=== PATIENT | male | born 1940 | race Caucasian/White ===

== ENCOUNTER → 2019-11-05 | Outpatient (CLI) | payer MEDICARE ==
[2019-11-08 15:09] LABS: T-TRANSGLUTAMINASE (TTG) IGA <2 U/mL (0-3); T-TRANSGLUTAMINASE (TTG) IGG 3 U/mL (0-5)
== END ==
LOC: LB.CLINIC 10:38
PROVIDERS: ATTEND Family Medicine
DX: R19.7 Diarrhea, unspecified (principal)
CPT/HCPCS: 36415; 83516; 83516-59; 87177; 87209; 87493

== ENCOUNTER 2020-04-03 13:41 | Emergency (ER) | payer MEDICARE ==
[2020-04-03 14:35] VITALS: BP 171/75; PULSE 52
--- NOTE | 2020-04-03 18:51 | EDM.PDOC ---
ED HPI GENERAL MEDICAL PROBLEM - General Chief Complaint: General Stated Complaint: HEART RATE Time Seen by Provider: 04/03/20 14:33 Source of Information: Reports: Patient History Limitations: Reports: No Limitations - History of Present Illness INITIAL COMMENTS - FREE TEXT/NARRATIVE: Patient is an 80 year old with history of atrial fibrillation who presents complaining of decreased heart rate with decreased exercise tolerance than he noted this am . Patient takes Diltiazem 240 mg po daily to control rate and takes Eliquis for an anticoagulant. NO chest pain or SOB 1 month ago started on Clonicien 1 mg bid the patient decreased to .5 mg po bid due to feeling too fatigued from 1 mg bid. Called [facility]iller runner office and they recommended he come to ED for evaluation. Onset: Today, Gradual Duration: Constant - Related Data Allergies Allergy/AdvReac Type Severity Reaction Status Date / Time Penicillins Allergy Rash Verified 11/17/15 13:44 sucralfate [From Carafate] Allergy Cannot Verified 11/17/15 13:44 Remember Sulfa (Sulfonamide Allergy Rash Verified 11/17/15 13:44 Antibiotics) venom-honey bee Allergy Cannot Verified 11/17/15 13:44 [bee venom (honey bee)] Remember Home Meds: Home Meds Aspirin [Children's Aspirin] 81 mg PO DAILY 03/06/15 [History] Hydrochlorothiazide 25 mg PO DAILY 03/06/15 [History] Losartan Potassium 100 mg PO DAILY 03/06/15 [History] dilTIAZem HCL [Cardizem Cd] 240 mg PO DAILY 03/06/15 [History] Apixaban [Eliquis] 5 mg PO BID 04/03/20 [History] cloNIDine [Catapres] 0.1 mg PO DAILY 04/03/20 [History] Past Medical History Cardiovascular History: Reports: Heart Murmur, Hypertension Genitourinary History: Reports: BPH - Past Surgical History Head Surgeries/Procedures: Reports: None HEENT Surgical History: Reports: None Respiratory Surgical History: Reports: None GI Surgical History: Reports: Appendectomy, Cholecystectomy, Hernia Repair/Other Male Surgical History: Reports: None, Circumcision Endocrine Surgical History: Reports: None Neurological Surgical History: Reports: None Musculoskeletal Surgical History: Reports: None Oncologic Surgical History: Reports: None Dermatological Surgical History: Reports: None Social & Family History - Family History Family Medical History: Noncontributory ED ROS GENERAL - Review of Systems Review Of Systems: See Below Constitutional: Reports: Fatigue. Denies: Fever, Chills, Malaise HEENT: Reports: No Symptoms Respiratory: Reports: No Symptoms Cardiovascular: Denies: Chest Pain, Dyspnea on Exertion, Orthopnea Endocrine: Reports: Fatigue GI/Abdominal: Denies: Abdominal Pain, Bloody Stool, Diarrhea, Nausea, Vomiting : Reports: No Symptoms Musculoskeletal: Reports: No Symptoms Skin: Reports: No Symptoms Neurological: Reports: No Symptoms Psychiatric: Reports: No Symptoms Hematologic/Lymphatic: Reports: No Symptoms ED EXAM, GENERAL - Physical Exam Exam: See Below EKG INTERPRETATION EKG Date: 04/03/20 Time: 13:15 Rhythm: A-Fib Rate (Beats/Min): 47 P-Wave: Absent QRS: Other (usual narrow but occassional widened QRS) EKG Interpretation Comments: Atrial fib with slow ventricular response with PVC's vs aberrrantly conducted complexes Course - Vital Signs Text/Narrative:: Patient observed in ED and and advised that dose of Diltiazem appears to be too high at this time\ Case discussed with Dr. Joshi who recommends decreasing dose to 120 mg po daily from 240 mg daily Patient to follow up with Dr. Joshi next week. Will continue current meds for BP including clonidine, HCTZ and Losartan at current doses Last Recorded V/S: Last Vital Signs Temp 97.9 F 04/03/20 14:10 Pulse 52 L 04/03/20 14:10 Resp 18 04/03/20 14:10 BP 171/75 H 04/03/20 14:10 Pulse Ox 98 04/03/20 14:10 - Orders/Labs/Meds Labs: Laboratory Tests 04/03/20 Range/Units 14:38 Sodium 140 (136-145) mmol/L Potassium 4.3 (3.5-5.1) mmol/L Chloride 103 (98-107) mmol/L Carbon Dioxide 29.4 (21.0-32.0) mmol/L Anion Gap 11.9 (5.0-15.0) mmol/L BUN 31 H (8-26) mg/dL Creatinine 1.52 H (0.70-1.30) mg/dL Est Cr Clr Drug Dosing 36.25 mL/min Estimated GFR (MDRD) 44 L (>60) MLS/MIN BUN/Creatinine Ratio 20.4 (6-25) Glucose 115 H (74-100) mg/dL Calcium 9.2 (8.5-10.1) mg/dL Troponin I 0.024 (0.000-0.060) ng/mL Departure - Departure Time of Disposition: 16:00 Disposition: Home, Self-Care 01 Condition: Good Clinical Impression: Adverse effect of calcium-channel blockers, initial encounter, Atrial fibrillation with slow ventricular response - Discharge Information *PRESCRIPTION DRUG MONITORING PROGRAM REVIEWED*: Not Applicable *COPY OF PRESCRIPTION DRUG MONITORING REPORT IN PATIENT BIRGIT: Not Applicable Referrals: PCP,None [Primary Care Provider] - Forms: ED Department Discharge Additional Instructions: Discharge home. Follow up with your quiller runner next week. Diltiazem 120mg by mouth daily. Call or return to the ER if you have any issues or concerns. Sepsis Event Note - Evaluation Sepsis Screening Result: No Definite Risk - Focused Exam Date Exam was Performed: 04/06/20 Time Exam was Performed: 08:29
--- NOTE | 2020-04-05 11:17 | CR ---
DATE OF SERVICE: 04/03/20 CLINICAL DATA: slow heart rate PA AND LATERAL CHEST: No priors. The heart is mildly enlarged. The aorta is calcified and ectatic. There is eventration of the right hemidiaphragm. The lungs are clear. No pneumothorax. No pleural effusions. No other significant findings. IMPRESSION: No evidence of acute intrathoracic disease. [id number] [facility]
== END 2020-04-03 16:00 | disposition home or self-care (01) ==
LOC: LB.ED 13:41
DX: I48.91 Unspecified atrial fibrillation (principal); T46.1X5A Adverse effect of calcium-channel blockers, initial encounter; I10 Essential (primary) hypertension; Z79.82 Long term (current) use of aspirin; Z79.01 Long term (current) use of anticoagulants; Z79.899 Other long term (current) drug therapy; Z88.0 Allergy status to penicillin; Z88.2 Allergy status to sulfonamides; Z91.030 Bee allergy status
CPT/HCPCS: 36415; 71046; 80048; 84484; 93005; 99284-25

== ENCOUNTER 2020-05-07 07:12 | Emergency (ER) | payer MEDICARE ==
[2020-05-07] MEDS: hydrALAZINE 20 MG/ML SDV IVPUSH ONE (07:45)
--- NOTE | 2020-05-07 07:51 | EDM.PDOC ---
ED HPI GENERAL MEDICAL PROBLEM - General Chief Complaint: Cardiovascular Problem Stated Complaint: SOB Time Seen by Provider: 05/07/20 07:35 Source of Information: Reports: Patient History Limitations: Reports: No Limitations - History of Present Illness INITIAL COMMENTS - FREE TEXT/NARRATIVE: pt presents to ED with elevated blood pressure at home of about 220/110 with coinciding shortness of breath/difficultly with deep inspiration. pt states he was at his cardiology appointment yesterday and prescribed amlodipine 5mg which he has not taken yet. pt did take is prescribed clonidine this AM. pt denies chest pain, headache, dizziness, fever, chills, cough, weakness, visual changes. - Related Data Allergies Allergy/AdvReac Type Severity Reaction Status Date / Time Penicillins Allergy Rash Verified 11/17/15 13:44 sucralfate [From Carafate] Allergy Cannot Verified 11/17/15 13:44 Remember Sulfa (Sulfonamide Allergy Rash Verified 11/17/15 13:44 Antibiotics) venom-honey bee Allergy Cannot Verified 11/17/15 13:44 [bee venom (honey bee)] Remember Home Meds: Home Meds Aspirin [Children's Aspirin] 81 mg PO DAILY 03/06/15 [History] Hydrochlorothiazide 25 mg PO DAILY 03/06/15 [History] Losartan Potassium 100 mg PO DAILY 03/06/15 [History] dilTIAZem HCL [Cardizem Cd] 240 mg PO DAILY 03/06/15 [History] Apixaban [Eliquis] 5 mg PO BID 04/03/20 [History] cloNIDine [Catapres] 0.1 mg PO DAILY 04/03/20 [History] Past Medical History Cardiovascular History: Reports: Heart Murmur, Hypertension Genitourinary History: Reports: BPH - Past Surgical History Head Surgeries/Procedures: Reports: None HEENT Surgical History: Reports: None Respiratory Surgical History: Reports: None GI Surgical History: Reports: Appendectomy, Cholecystectomy, Hernia Repair/Other Male Surgical History: Reports: None, Circumcision Endocrine Surgical History: Reports: None Neurological Surgical History: Reports: None Musculoskeletal Surgical History: Reports: None Oncologic Surgical History: Reports: None Dermatological Surgical History: Reports: None Social & Family History - Family History Family Medical History: Noncontributory ED ROS GENERAL - Review of Systems Review Of Systems: Comprehensive ROS is negative, except as noted in HPI. ED EXAM, GENERAL - Physical Exam Exam: See Below Exam Limited By: No Limitations General Appearance: Alert Eye Exam: Bilateral Eye: EOMI, PERRL Nose: Normal Inspection Throat/Mouth: Normal Inspection, Normal Teeth, Normal Voice, No Airway Compromise Respiratory/Chest: No Respiratory Distress, Lungs Clear, Normal Breath Sounds, No Accessory Muscle Use Cardiovascular: Normal Peripheral Pulses, No Edema, No Gallop, Systolic Murmur (4/6), Irregularly Irregular Peripheral Pulses: 2+: Radial (L), Radial (R), Dorsalis Pedis (L), Dorsalis Pedis (R) Neurological: Alert, Oriented, CN II-XII Intact, Normal Cognition, No Motor/Sensory Deficits Psychiatric: Normal Affect, Normal Mood Skin Exam: Warm, Dry, Intact EKG INTERPRETATION EKG Date: 05/07/20 Time: 07:28 Rhythm: A-Fib [place]: Normal P-Wave: Absent QRS: Normal ST-T: Normal QT: Normal Comparison: No Change Course - Vital Signs Last Recorded V/S: Last Vital Signs Temp 98.4 F 05/07/20 07:19 Pulse 52 L 05/07/20 07:46 Resp 16 05/07/20 08:01 BP 174/64 H 05/07/20 08:01 Pulse Ox 16 L 05/07/20 08:01 - Orders/Labs/Meds Orders: Active Orders 24 hr Category Date Time Status EKG Documentation Completion [RC] ASDIRECTED Care 05/07/20 07:41 Active Labs: Laboratory Tests 05/07/20 05/07/20 Range/Units 07:51 07:51 WBC 6.0 (4.0-11.0) K/uL RBC 4.24 L (4.50-6.50) M/uL Hgb 13.1 (13.0-18.0) g/dL Hct 38.1 L (40.0-54.0) % MCV 90 (76-96) fL MCH 30.9 (27.0-32.0) pg MCHC 34.4 (31.0-35.0) g/dL RDW 14.0 (11.0-16.0) % Plt Count 216 (150-400) K/uL MPV 9.3 (6.0-10.0) fL Neut % (Auto) 73.6 H (45.0-70.0) % Lymph % (Auto) 14.0 L (20.0-40.0) % [place] % (Auto) 9.1 (3.0-10.0) % Eos % (Auto) 3.0 (1.0-5.0) % Baso % (Auto) 0.3 (0.0-0.5) % Neut # (Auto) 4.43 (2.00-7.50) K/uL Lymph # (Auto) 0.84 L (1.50-4.00) K/uL [place] # (Auto) 0.55 (0.20-0.80) K/uL Eos # (Auto) 0.18 (0.04-0.40) K/uL Baso # (Auto) 0.02 (0.02-0.10) K/uL Sodium 130 L (136-145) mmol/L Potassium 3.2 L D (3.5-5.1) mmol/L Chloride 97 L (98-107) mmol/L Carbon Dioxide 29.5 (21.0-32.0) mmol/L Anion Gap 6.7 (5.0-15.0) mmol/L BUN 22 D (8-26) mg/dL Creatinine 1.18 D (0.70-1.30) mg/dL Est Cr Clr Drug Dosing TNP Estimated GFR (MDRD) 59 L (>60) MLS/MIN BUN/Creatinine Ratio 18.6 (6-25) Glucose 126 H (74-100) mg/dL Calcium 9.4 (8.5-10.1) mg/dL Total Bilirubin 1.2 H D (0.0-1.0) mg/dL AST 22 (15-37) U/L ALT 28 (12-78) U/L Alkaline Phosphatase 145 H (46-116) U/L Troponin I 0.024 (0.000-0.060) ng/mL B-Natriuretic Peptide 5746 H (0-450) pg/mL Total Protein 7.7 (6.4-8.2) g/dL Albumin 3.5 (3.4-5.0) g/dL Globulin 4.2 (2.2-4.2) g/dL Albumin/Globulin Ratio 0.8 (0.8-2.0) Meds: Medications Discontinued Medications Generic Name Dose Route Start Last Admin Trade Name Prosper PRN Reason Stop Dose Admin Hydralazine HCl 10 mg 05/07/20 07:41 05/07/20 07:45 Apresoline IVPUSH 05/07/20 07:42 10 mg ONETIME ONE Administration Hydralazine HCl Confirm 05/07/20 08:05 Apresoline Administered 05/07/20 08:06 Dose 20 mg .ROUTE .STK-MED ONE Departure - Departure Time of Disposition: 09:30 Disposition: Home, Self-Care 01 Clinical Impression: Hypokalemia, Hyponatremia, Hypertensive urgency - Discharge Information *PRESCRIPTION DRUG MONITORING PROGRAM REVIEWED*: Not Applicable *COPY OF PRESCRIPTION DRUG MONITORING REPORT IN PATIENT BIRGIT: Not Applicable Instructions: Hypokalemia, Hypertension, Adult, [id number], Heart Failure, Diagnosis, [id number] Referrals: PCP,None [Primary Care Provider] - Forms: ED Department Discharge Additional Instructions: Prescription sent for Potasium Cl 10mEq BID [facility] Patient instructed to go get today and get new prescription from Dr. Joshi. Watch for signs of heart failure such as edema, shortness of breath. Sepsis Event Note (ED) - Focused Exam Vital Signs: Vital Signs Temp Pulse Resp BP Pulse Ox 05/07/20 08:01 16 174/64 H 16 L 05/07/20 07:46 52 L 16 177/65 H 94 L 05/07/20 07:36 53 L 16 197/71 H 95 05/07/20 07:19 98.4 F 58 L 18 184/63 H 96 - Problem List & Annotations (1) Hypertensive urgency SNOMED Code(s): 288165216 Code(s): I16.0 - HYPERTENSIVE URGENCY Status: Acute Current Visit: Yes (2) Hypokalemia SNOMED Code(s): 58731820 Code(s): E87.6 - HYPOKALEMIA Status: Acute Current Visit: Yes Annotation/Comment:: PO K+ prescription called into [facility] (3) Hyponatremia SNOMED Code(s): 91374444 Code(s): E87.1 - HYPO-OSMOLALITY AND HYPONATREMIA Status: Acute Current Visit: Yes Annotation/Comment:: ok'd pt to resume table salt, his renal function is well within normal limits and excretion is not an issue. - Problem List Review Problem List Initiated/Reviewed/Updated: Yes - My Orders Last 24 Hours: My Active Orders 05/07/20 07:41 EKG Documentation Completion [RC] ASDIRECTED - Assessment/Plan Last 24 Hours: My Active Orders 05/07/20 07:41 EKG Documentation Completion [RC] ASDIRECTED Assessment:: hypokalemia hypertensive urgency hyponatremia Plan: with pt's renal function intact, ok'd use of table salt to see if these levels maintain. currently 130 which is slightly low but i don't want to reduce his hctz dose right now as he does have history of CHF and any other diuretic, to the best of my knowledge, would either reduce other electrolytes more or continue effect of sodium excretion. will add PO kdur BID to increase his k+ for the next 30 days, pt then sees cardiology and at that time can have his levels checked again. hypertensive urgency, pt given 10mg hydralazine which reduced his bp to 160s/80s -170/80s with resolution of the slight shortness of breath he was having. pt will be starting amlodipine later today. he was encouraged to return if any symptoms returned including SOB, chest pain, headache, visual changes, weakness. pt agreeable to this and discharged home.
[2020-05-07] MEDS ORDERED: hydrALAZINE 20 MG/ML SDV ONE (08:05)
[2020-05-07 09:02] VITALS: PULSE 52
[2020-05-07 09:03] VITALS: BP 174/64
== END 2020-05-07 10:01 | disposition home or self-care (01) ==
LOC: LB.ED 07:12
DX: I16.0 Hypertensive urgency (principal); E87.6 Hypokalemia; E87.1 Hypo-osmolality and hyponatremia; I10 Essential (primary) hypertension; Z79.01 Long term (current) use of anticoagulants; Z88.0 Allergy status to penicillin; Z88.2 Allergy status to sulfonamides; Z91.030 Bee allergy status; Z79.82 Long term (current) use of aspirin; Z79.899 Other long term (current) drug therapy
CPT/HCPCS: 36415; 80053; 83880; 84484; 85025; 93005; 96374; 99284; 99284-25; J0360

== ENCOUNTER 2020-12-09 04:32 | Emergency (ER) | payer MEDICARE ==
--- NOTE | 2020-12-09 05:25 | EDM.PDOC ---
ED HPI GENERAL MEDICAL PROBLEM - General Chief Complaint: Back Pain or Injury Stated Complaint: back pain Time Seen by Provider: 12/09/20 05:10 Source of Information: Reports: Patient, Family, RN History Limitations: Reports: No Limitations - History of Present Illness Onset: Gradual Duration: Hour(s): Location: Reports: Back, Radiates to (both legss) Quality: Reports: Burning, Sharp Severity: Moderate Improves with: Reports: None - Related Data Allergies Allergy/AdvReac Type Severity Reaction Status Date / Time Penicillins Allergy Rash Verified 11/17/15 13:44 sucralfate [From Carafate] Allergy Cannot Verified 11/17/15 13:44 Remember Sulfa (Sulfonamide Allergy Rash Verified 11/17/15 13:44 Antibiotics) venom-honey bee Allergy Cannot Verified 11/17/15 13:44 [bee venom (honey bee)] Remember Home Meds: Home Meds Aspirin [Children's Aspirin] 81 mg PO DAILY 03/06/15 [History] Hydrochlorothiazide 25 mg PO DAILY 03/06/15 [History] Losartan Potassium 100 mg PO DAILY 03/06/15 [History] dilTIAZem HCL [Cardizem Cd] 240 mg PO DAILY 03/06/15 [History] Apixaban [Eliquis] 5 mg PO BID 04/03/20 [History] cloNIDine [Catapres] 0.1 mg PO DAILY 04/03/20 [History] Past Medical History HEENT History: Reports: Hard of Hearing, Impaired Vision Cardiovascular History: Reports: Heart Murmur, Hypertension, Pacemaker Genitourinary History: Reports: BPH - Past Surgical History Head Surgeries/Procedures: Reports: None HEENT Surgical History: Reports: None Respiratory Surgical History: Reports: None GI Surgical History: Reports: Appendectomy, Cholecystectomy, Hernia Repair/Other Male Surgical History: Reports: None, Circumcision Endocrine Surgical History: Reports: None Neurological Surgical History: Reports: None Musculoskeletal Surgical History: Reports: None Oncologic Surgical History: Reports: None Dermatological Surgical History: Reports: None Social & Family History - Family History Family Medical History: No Pertinent Family History - Tobacco Use Tobacco Use Status *Q: Former Tobacco User Tobacco Use Within Last Twelve Months: Pipe, Other (See Below) (45yrs ago) - Caffeine Use Caffeine Use: Reports: Coffee Other Caffeine Use: 2 cups ED ROS GENERAL - Review of Systems Review Of Systems: Comprehensive ROS is negative, except as noted in HPI. Musculoskeletal: Reports: Back Pain, Other (running down both legs) Skin: Reports: Other (Normal injection site on left) ED EXAM,LOWER BACK PAIN/INJURY - Physical Exam Exam: See Below Exam Limited By: No Limitations General Appearance: Moderate Distress Eye Exam: Bilateral Eye: PERRL Ears: Normal External Exam, Normal Canal Nose: Normal Inspection, Normal Mucosa, No Blood Throat/Mouth: Normal Inspection, Normal Lips, Normal Teeth, Normal Oropharynx Head: Atraumatic, Normocephalic Neck: Normal Inspection, Supple, Non-Tender Respiratory/Chest: No Respiratory Distress, Lungs Clear, Normal Breath Sounds Cardiovascular: Normal Peripheral Pulses, Regular Rate, Rhythm, No Edema GI/Abdominal: Normal Bowel Sounds, Soft, Non-Tender (Male) Exam: Deferred Rectal (Males) Exam: Deferred Back Exam: Other (tender over SI joint ) Extremities: Normal Inspection Neurological: Alert, Normal Mood/Affect, Normal Dorsiflexion, CN II-XII Intact, Normal Plantar Flexion Psychiatric: Normal Affect, Normal Mood Skin Exam: Warm, Dry, Intact, Normal Color, Other (injection site normal no sign of infection) Lymphatic: No Adenopathy Course - Vital Signs Last Recorded V/S: Last Vital Signs Temp Pulse 93 12/09/20 05:35 Resp 16 12/09/20 05:35 BP 154/74 H 12/09/20 05:35 Pulse Ox 100 12/09/20 05:35 - Orders/Labs/Meds Orders: Active Orders 24 hr Category Date Time Status Chest Abdomen Pelvis w Cont [CT] Stat Exams 12/09/20 05:00 Ordered Labs: Laboratory Tests 12/09/20 12/09/20 12/09/20 Range/Units 05:18 05:25 05:25 WBC 13.4 H D (4.0-11.0) K/uL RBC 4.43 L (4.50-6.50) M/uL Hgb 14.1 (13.0-18.0) g/dL Hct 41.5 (40.0-54.0) % MCV 94 (76-96) fL MCH 31.8 (27.0-32.0) pg MCHC 34.0 (31.0-35.0) g/dL RDW 12.5 (11.0-16.0) % Plt Count 223 (150-400) K/uL MPV 9.3 (6.0-10.0) fL Neut % (Auto) 90.5 H (45.0-70.0) % Lymph % (Auto) 5.4 L (20.0-40.0) % [place] % (Auto) 4.0 (3.0-10.0) % Eos % (Auto) 0.0 L (1.0-5.0) % Baso % (Auto) 0.1 (0.0-0.5) % Neut # (Auto) 12.13 H (2.00-7.50) K/uL Lymph # (Auto) 0.73 L (1.50-4.00) K/uL [place] # (Auto) 0.54 (0.20-0.80) K/uL Eos # (Auto) 0.00 L (0.04-0.40) K/uL Baso # (Auto) 0.01 L (0.02-0.10) K/uL PT 10.9 (9.0-11.5) sec INR 1.1 (1.0-3.5) Sodium 137 (136-145) mmol/L Potassium 4.9 (3.5-5.1) mmol/L Chloride 102 (98-107) mmol/L Carbon Dioxide 29.3 (21.0-32.0) mmol/L Anion Gap 10.6 (5.0-15.0) mmol/L BUN 24 (8-26) mg/dL Creatinine 1.27 (0.70-1.30) mg/dL Est Cr Clr Drug Dosing TNP Estimated GFR (MDRD) 54 L (>60) MLS/MIN BUN/Creatinine Ratio 18.9 (6-25) Glucose 169 H (74-100) mg/dL Calcium 9.2 (8.5-10.1) mg/dL Total Bilirubin 0.6 D (0.0-1.0) mg/dL AST 26 (15-37) U/L ALT 27 (12-78) U/L Alkaline Phosphatase 104 (46-116) U/L Total Protein 7.4 (6.4-8.2) g/dL Albumin 3.2 L (3.4-5.0) g/dL Globulin 4.2 (2.2-4.2) g/dL Albumin/Globulin Ratio 0.8 (0.8-2.0) Urine Color Urine Appearance (CLEAR) Urine pH (5.0-8.0) Ur Specific [place] (1.003-1.030) Urine Protein (NEGATIVE) mg/dL Urine Glucose (UA) (NEGATIVE) mg/dL Urine Ketones (NEGATIVE) mg/dL Urine Occult Blood (NEGATIVE) Urine Nitrite (NEGATIVE) Urine Bilirubin (NEGATIVE) Urine Urobilinogen (0.2-1.0) E.U./dL Ur Leukocyte Esterase (NEGATIVE) U Hyaline Cast (Auto) /HPF Urine RBC Urine WBC Urine Bacteria /HPF 12/09/20 Range/Units 06:00 WBC (4.0-11.0) K/uL RBC (4.50-6.50) M/uL Hgb (13.0-18.0) g/dL Hct (40.0-54.0) % MCV (76-96) fL MCH (27.0-32.0) pg MCHC (31.0-35.0) g/dL RDW (11.0-16.0) % Plt Count (150-400) K/uL MPV (6.0-10.0) fL Neut % (Auto) (45.0-70.0) % Lymph % (Auto) (20.0-40.0) % [place] % (Auto) (3.0-10.0) % Eos % (Auto) (1.0-5.0) % Baso % (Auto) (0.0-0.5) % Neut # (Auto) (2.00-7.50) K/uL Lymph # (Auto) (1.50-4.00) K/uL [place] # (Auto) (0.20-0.80) K/uL Eos # (Auto) (0.04-0.40) K/uL Baso # (Auto) (0.02-0.10) K/uL PT (9.0-11.5) sec INR (1.0-3.5) Sodium (136-145) mmol/L Potassium (3.5-5.1) mmol/L Chloride (98-107) mmol/L Carbon Dioxide (21.0-32.0) mmol/L Anion Gap (5.0-15.0) mmol/L BUN (8-26) mg/dL Creatinine (0.70-1.30) mg/dL Est Cr Clr Drug Dosing Estimated GFR (MDRD) (>60) MLS/MIN BUN/Creatinine Ratio (6-25) Glucose (74-100) mg/dL Calcium (8.5-10.1) mg/dL Total Bilirubin (0.0-1.0) mg/dL AST (15-37) U/L ALT (12-78) U/L Alkaline Phosphatase (46-116) U/L Total Protein (6.4-8.2) g/dL Albumin (3.4-5.0) g/dL Globulin (2.2-4.2) g/dL Albumin/Globulin Ratio (0.8-2.0) Urine Color Yellow Urine Appearance Clear (CLEAR) Urine pH 5.5 (5.0-8.0) Ur Specific [place] 1.025 (1.003-1.030) Urine Protein Trace H (NEGATIVE) mg/dL Urine Glucose (UA) Negative (NEGATIVE) mg/dL Urine Ketones Negative (NEGATIVE) mg/dL Urine Occult Blood Negative (NEGATIVE) Urine Nitrite Negative (NEGATIVE) Urine Bilirubin Negative (NEGATIVE) Urine Urobilinogen 0.2 (0.2-1.0) E.U./dL Ur Leukocyte Esterase Negative (NEGATIVE) U Hyaline Cast (Auto) Rare /HPF Urine RBC Not Reportable Urine WBC Not Reportable Urine Bacteria Few /HPF Meds: Medications Discontinued Medications Generic Name Dose Route Start Last Admin Trade Name Freq PRN Reason Stop Dose Admin Orphenadrine Citrate 60 mg 12/09/20 05:52 12/09/20 06:08 Norflex IM 12/09/20 05:53 60 mg ONETIME ONE Administration Tramadol HCl 100 mg 12/09/20 05:28 12/09/20 05:32 Ultram PO 12/09/20 05:29 100 mg ONETIME ONE Administration Tramadol HCl Confirm 12/09/20 05:40 12/09/20 05:44 Ultram Administered 12/09/20 05:41 Not Given Dose 100 mg .ROUTE .STK-MED ONE Departure - Departure Time of Disposition: 06:50 Disposition: Home, Self-Care 01 Condition: Good Clinical Impression: Radiculopathy due to lumbar intervertebral disc disorder, Muscle spasm of back - Discharge Information *PRESCRIPTION DRUG MONITORING PROGRAM REVIEWED*: Not Applicable *COPY OF PRESCRIPTION DRUG MONITORING REPORT IN PATIENT BIRGIT: Not Applicable Instructions: Herniated Disk, [id number], Chronic Back Pain, [id number], Pain Medicine Instructions, [id number], Muscle Cramps and Spasms, [id number], Radicular Pain Referrals: PCP,None [Primary Care Provider] - Forms: ED Department Discharge Additional Instructions: Take all medications as prescribed. RT to ED of FU with PCP for new or worsening symptoms. Watch for signs of infection, fever, shortness of breath, sweating, cough or congestion. keep injection site clean, watch for redness or drainage. Sepsis Event Note (ED) - Focused Exam Vital Signs: Vital Signs Pulse Resp BP Pulse Ox 12/09/20 05:35 93 16 154/74 H 100 - Problem List & Annotations (1) Radiculopathy due to lumbar intervertebral disc disorder SNOMED Code(s): 213755177163704 Code(s): M51.16 - INTERVERTEBRAL DISC DISORDERS W RADICULOPATHY, LUMBAR REGION Status: Acute Current Visit: Yes - My Orders Last 24 Hours: My Active Orders 12/09/20 05:00 Chest Abdomen Pelvis w Cont [CT] Stat - Assessment/Plan Last 24 Hours: My Active Orders 12/09/20 05:00 Chest Abdomen Pelvis w Cont [CT] Stat
[2020-12-09] MEDS ORDERED: traMADol 50 MG Tab PO ONE (05:28)
[2020-12-09 05:37] VITALS: BP 154/74; PULSE 93
[2020-12-09] MEDS ORDERED: traMADol 50 MG Tab ONE (05:40)
[2020-12-09] MEDS ORDERED: Orphenadrine 60 MG/2 ML Inj IM ONE (05:52)
[2020-12-09] MEDS ORDERED: Acetaminophen/HYDROcodone 325-5 MG Tab ONE (06:00)
[2020-12-09] MEDS ORDERED: Cyclobenzaprine 10 MG Tab ONE (06:00)
--- NOTE | 2020-12-11 09:13 | CT ---
DATE OF SERVICE: 12/09/2020 CLINICAL DATA: Pain Enhanced Chest CT: Multi slice acquisition through the chest with IV contrast was performed. Comparison is made to a prior exam dated 30 July 2018. There are mild emphysematous changes throughout both lungs. Ther is a small pleural bleb in the right lung base posteriorly, unchanged. No new pulmonary parechymal abnormalities. The heart size is normal. There are moderate coronary artery calcifications. No significant pericardial effusion. No aortic aneurysm or dissection. No hilar or mediastinal adenopathy. There is a moderate size hiatal hernia. There are surgical changes in the region of the GE junction. There is fluid within the mid esophagus most likely related to GE reflux. There is degenerative disc disease throughout the thoracic spine. Enhanced abdomen and pelvic CT: Multi slice acquisition through the abdomen and pelvis with IV, but without oral contrast was performed. Comparison is made to a prior exam dated 30 July 2018. There is a moderate size hiatal hernia. There are surgical changes in the GE junction region. There is diffuse fatty infiltration of the liver. No focal hepatic lesions. The gallbladder appears normal. The spleen appears normal. The pancreas appears normal. The right and left adrenals appear normal. The right and left kidneys enhance symmetrically. There are cysts in both kidneys. No solid renal masses. No hydronephrosis or hydroureter. The bladder is partially fluid filled. There is diffuse bladder wall thickening. Cystitis should be considered. The prostate is enlarged. There are calcifications within the prostate consistent with chronic prostatitis. The appendix is not dilated. No evidence of appendicitis. There is a moderate amount of ingested debris within the stomach. There is moderate amount of stool present throughout the colon. No free air. No free fluid. No dilated loops of bowel. No adenopathy. No aortic aneurysm. There is a fat containing umbilical hernia. Degenerative disc disease throughout the lumbar spine. MTDD
== END 2020-12-09 07:00 | disposition home or self-care (01) ==
LOC: LB.ED 04:32
DX: M51.16 Intervertebral disc disorders with radiculopathy, lumbar region (principal); M62.830 Muscle spasm of back; I10 Essential (primary) hypertension; Z88.0 Allergy status to penicillin; Z88.8 Allergy status to other drugs, medicaments and biological substances; Z88.2 Allergy status to sulfonamides; Z91.030 Bee allergy status; Z79.82 Long term (current) use of aspirin; Z79.899 Other long term (current) drug therapy; Z79.01 Long term (current) use of anticoagulants; Z87.891 Personal history of nicotine dependence
CPT/HCPCS: 36415; 71260; 74177; 80053; 81001; 85025; 85610; 96372; 99283; 99284-25; A9270-GY; J2360

== ENCOUNTER 2021-08-25 16:56 | Emergency (ER) | payer MEDICARE ==
--- NOTE | 2021-08-25 17:56 | EDM.PDOC ---
ED HPI GENERAL MEDICAL PROBLEM - General Stated Complaint: SHORTNESS OF BREATH Time Seen by Provider: 08/25/21 17:40 Source of Information: Reports: Patient History Limitations: Reports: No Limitations - History of Present Illness INITIAL COMMENTS - FREE TEXT/NARRATIVE: This patient presents to the emergency department on the direction of his primary care provider. He was seen in the clinic earlier this afternoon for a preoperative physical. He has a lower back procedure scheduled for September 07 at [facility]. He informed his primary care provider he has had some shortness of breath for about the past month "on and off." He also admits to having some chest pain that woke him from sleep last night. He states the pain did not last more than an hour and he felt better and did not think it was significant. As a part of his physical today he had labs which noted a troponin of 0.125 and a wide-complex rhythm on his EKG with a nonspecific block. He does have a history of atrial fibrillation, bradycardia, and placement of a pacemaker; this was done just over a year ago. On arrival to the ER he states he does not have any difficulty breathing and denies chest pain. He denies nausea, vomiting, other symptoms or concerns. - Related Data Allergies Allergy/AdvReac Type Severity Reaction Status Date / Time Penicillins Allergy Rash Verified 08/25/21 17:24 sucralfate [From Carafate] Allergy Cannot Verified 08/25/21 17:24 Remember Sulfa (Sulfonamide Allergy Rash Verified 08/25/21 17:24 Antibiotics) venom-honey bee Allergy Cannot Verified 08/25/21 17:24 [bee venom (honey bee)] Remember Home Meds: Home Meds Losartan Potassium 100 mg PO DAILY 03/06/15 [History] dilTIAZem HCL [Cardizem Cd] 240 mg PO DAILY 03/06/15 [History] Apixaban [Eliquis] 5 mg PO BID 04/03/20 [History] cloNIDine [Catapres] 0.1 mg PO DAILY 04/03/20 [History] Losartan [Cozaar] 100 mg PO DAILY 08/25/21 [History] amLODIPine [Norvasc] 5 mg PO DAILY 08/25/21 [History] Past Medical History HEENT History: Reports: Hard of Hearing, Impaired Vision Cardiovascular History: Reports: Heart Murmur, Hypertension, Pacemaker Genitourinary History: Reports: BPH Musculoskeletal History: Reports: Back Pain, Chronic - Past Surgical History Head Surgeries/Procedures: Reports: None HEENT Surgical History: Reports: None Respiratory Surgical History: Reports: None GI Surgical History: Reports: Appendectomy, Cholecystectomy, Hernia Repair/Other Male Surgical History: Reports: None, Circumcision Endocrine Surgical History: Reports: None Neurological Surgical History: Reports: None Musculoskeletal Surgical History: Reports: None Oncologic Surgical History: Reports: None Dermatological Surgical History: Reports: None Social & Family History - Family History Family Medical History: No Pertinent Family History - Tobacco Use Tobacco Use Status *Q: Never Tobacco User - Caffeine Use Caffeine Use: Reports: Coffee Other Caffeine Use: 2 cups ED ROS GENERAL - Review of Systems Review Of Systems: Comprehensive ROS is negative, except as noted in HPI. ED EXAM, GENERAL - Physical Exam Exam: See Below Exam Limited By: No Limitations General Appearance: Alert, WD/WN, No Apparent Distress Eye Exam: Bilateral Eye: Normal Inspection, PERRL Ears: Normal External Exam Nose: Normal Inspection Head: Atraumatic, Normocephalic Neck: Normal Inspection, Non-Tender, Full Range of Motion Respiratory/Chest: No Respiratory Distress, Lungs Clear, Normal Breath Sounds, No Accessory Muscle Use Cardiovascular: Regular Rate, Rhythm, Systolic Murmur (Grade 3, patient states this is not new.) GI/Abdominal: Normal Bowel Sounds, Soft, Non-Tender, No Distention Extremities: Normal Range of Motion Neurological: Alert, Oriented Psychiatric: Normal Affect Skin Exam: Warm, Dry, Intact, Normal Color #1 Interpretation EKG Date: 08/25/21 Rhythm: Other (Wide-complex rhythm) Rate (Beats/Min): 68 [place]: LAD-Left [place] Deviation QRS: Normal ST-T: Normal QT: Normal Comparison: Other: (Unable to locate previous) Course - Vital Signs Last Recorded V/S: Last Vital Signs Temp 36.7 C 08/25/21 17:42 Pulse 65 08/25/21 17:42 Resp 16 08/25/21 17:42 BP 136/64 08/25/21 17:42 Pulse Ox 94 L 08/25/21 17:42 - Re-Assessments/Exams Free Text/Narrative Re-Assessment/Exam: 08/25/21 18:28 This patient presents to the emergency department on the advice of his primary care provider. He was noted to have an elevated troponin after a episode of chest pain last night and some difficulty breathing for the past 3 weeks. He does have an elevated troponin and some mild EKG changes according to the primary care provider; however, I am unable to locate his last EKG for comparison. On arrival to the ER the patient denies any chest pain or difficulty breathing. [facility] after learning that Jamey Gong was on divert. They are able to accept him there and I spoke with Dr. Jorge, hospitalist who did agree to take this patient admission. Patient was prepared for discharge and was stable at the time he was transferred. Departure - Departure Time of Disposition: 18:45 Disposition: DC/Tfer to Acute Hospital 02 Reason for Transfer *Q: Other Condition: Good Clinical Impression: NSTEMI (non-ST elevated myocardial infarction) Sepsis Event Note (ED) - Focused Exam Vital Signs: Vital Signs Temp Pulse Resp BP Pulse Ox 08/25/21 17:42 36.7 C 65 16 136/64 94 L
[2021-08-25 18:39] VITALS: BP 130/65; PULSE 69
== END 2021-08-25 18:50 ==
LOC: LB.ED 16:56
DX: I21.4 Non-ST elevation (NSTEMI) myocardial infarction (principal); R06.02 Shortness of breath; I10 Essential (primary) hypertension; Z88.0 Allergy status to penicillin; Z88.2 Allergy status to sulfonamides; Z91.030 Bee allergy status; Z88.8 Allergy status to other drugs, medicaments and biological substances; Z95.0 Presence of cardiac pacemaker
CPT/HCPCS: 99285; A0425; A0429

== ENCOUNTER 2022-03-25 12:51 | Emergency (ER) | payer MEDICARE ==
[2022-03-25 13:06] VITALS: BP 131/78; PULSE 82
[2022-03-25] MEDS: Tranexamic Acid 1,000 MG in Sodium Chloride 0.9% 100 ML IV ONE (13:21)
== END 2022-03-25 14:35 | disposition home or self-care (01) ==
LOC: LB.ED 12:51
DX: R04.0 Epistaxis (principal); Z95.0 Presence of cardiac pacemaker; Z88.0 Allergy status to penicillin; Z88.2 Allergy status to sulfonamides; Z91.030 Bee allergy status; Z79.01 Long term (current) use of anticoagulants; Z79.899 Other long term (current) drug therapy
CPT/HCPCS: 36415; 85025; 85610; 85730; 99283

== ENCOUNTER 2022-05-02 11:55 | Emergency (ER) | payer MEDICARE ==
[2022-05-02 14:35] LABS: TROPONIN I HIGH SENSITIVITY 86.1 pg/ml (<=60.4)
[2022-05-02 19:30] VITALS: BP 138/76; PULSE 78
== END 2022-05-02 19:39 ==
LOC: LB.ED 11:55
DX: I50.23 Acute on chronic systolic (congestive) heart failure (principal); I10 Essential (primary) hypertension; Z20.822 Contact with and (suspected) exposure to COVID-19; Z79.899 Other long term (current) drug therapy; Z79.01 Long term (current) use of anticoagulants; Z90.49 Acquired absence of other specified parts of digestive tract; Z88.0 Allergy status to penicillin; Z88.2 Allergy status to sulfonamides; Z91.038 Other insect allergy status; Z88.8 Allergy status to other drugs, medicaments and biological substances
CPT/HCPCS: 36415; 71045; 80053; 84484; 85025; 93005; 99285; U0002; 93010; 99284

== ENCOUNTER 2022-09-19 16:23 | Emergency (ER) | payer MEDICARE ==
[2022-09-19] MEDS ORDERED: Sodium Chloride 0.9% 10 ML Syringe FLUSH PRN (17:30)
[2022-09-19 17:42] VITALS: BP 155/74; PULSE 84
[2022-09-19 17:48] LABS: ESTIMATED GFR 50 mL/min (>60)
[2022-09-19] MEDS ORDERED: Azithromycin 250 MG Tab ONE (18:30)
== END 2022-09-19 18:36 | disposition home or self-care (01) ==
LOC: LB.ED 16:23
DX: J81.1 Chronic pulmonary edema (principal); R05.1 Acute cough; I10 Essential (primary) hypertension; Z88.0 Allergy status to penicillin; Z88.8 Allergy status to other drugs, medicaments and biological substances; Z88.2 Allergy status to sulfonamides; Z91.030 Bee allergy status; Z79.01 Long term (current) use of anticoagulants; Z79.899 Other long term (current) drug therapy; Z79.82 Long term (current) use of aspirin; Z90.49 Acquired absence of other specified parts of digestive tract
CPT/HCPCS: 36415; 71045; 80048; 84484; 85027; 93005; 99285; A9270; 93010; 99282

== ENCOUNTER 2022-09-20 15:15 | Emergency (ER) | payer MEDICARE ==
[2022-09-20 16:50] LABS: TROPONIN I HIGH SENSITIVITY 4.8 pg/ml (<=60.4)
[2022-09-20 16:54] VITALS: BP 113/57; PULSE 82
== END 2022-09-20 17:33 | disposition home or self-care (01) ==
LOC: LB.ED 15:15
DX: U07.1 COVID-19 (principal); I10 Essential (primary) hypertension; E11.9 Type 2 diabetes mellitus without complications; I45.10 Unspecified right bundle-branch block; Z95.0 Presence of cardiac pacemaker; Z88.0 Allergy status to penicillin; Z88.8 Allergy status to other drugs, medicaments and biological substances; Z88.2 Allergy status to sulfonamides; Z91.030 Bee allergy status; Z79.01 Long term (current) use of anticoagulants; Z79.82 Long term (current) use of aspirin; Z79.899 Other long term (current) drug therapy
CPT/HCPCS: 36415; 71046; 80053; 82947; 83605; 83880; 84145; 84484; 85025; 87804; 87804-59; 93005; 99284; A0425; A0429; U0002

== ENCOUNTER 2022-10-31 05:35 | Emergency (ER) | payer MEDICARE ==
[2022-10-31 07:15] VITALS: BP 131/76; PULSE 80
[2022-10-31] MEDS ORDERED: Ciprofloxacin 250 MG Tab ONE (08:02)
[2022-10-31] MEDS ORDERED: metroNIDAZOLE 500 MG Tab ONE (08:11)
[2022-10-31] MEDS ORDERED: metroNIDAZOLE 500 MG Tab PO ONE (08:42)
[2022-10-31] MEDS ORDERED: Ciprofloxacin 250 MG Tab PO ONE (08:42)
== END 2022-10-31 08:11 | disposition home or self-care (01) ==
LOC: LB.ED 05:35
DX: K57.92 Diverticulitis of intestine, part unspecified, without perforation or abscess without bleeding (principal); I10 Essential (primary) hypertension; E11.9 Type 2 diabetes mellitus without complications; Z79.82 Long term (current) use of aspirin; Z79.899 Other long term (current) drug therapy; Z88.0 Allergy status to penicillin; Z88.2 Allergy status to sulfonamides; Z91.030 Bee allergy status
CPT/HCPCS: 36415; 74176; 80053; 81001; 85025; 99284; A9270-GY

== ENCOUNTER 2022-11-05 02:15 | Emergency (ER) | payer MEDICARE ==
[2022-11-05 03:05] VITALS: BP 138/64; PULSE 84
== END 2022-11-05 03:30 | disposition home or self-care (01) ==
LOC: LB.ED 02:15
DX: R04.0 Epistaxis (principal); I10 Essential (primary) hypertension; E11.9 Type 2 diabetes mellitus without complications; I45.10 Unspecified right bundle-branch block; Z88.0 Allergy status to penicillin; Z88.2 Allergy status to sulfonamides; Z88.8 Allergy status to other drugs, medicaments and biological substances; Z91.030 Bee allergy status; Z79.01 Long term (current) use of anticoagulants; Z79.899 Other long term (current) drug therapy; Z79.82 Long term (current) use of aspirin; Z79.84 Long term (current) use of oral hypoglycemic drugs
CPT/HCPCS: 30903; 99283-25; A0425; A0429

== ENCOUNTER 2022-12-17 08:57 | Emergency (ER) | payer MEDICARE | END 2022-12-17 10:40 | disposition home or self-care (01) | LOC: LB.ED 08:57 | DX: R04.0 Epistaxis (principal); I10 Essential (primary) hypertension; E11.9 Type 2 diabetes mellitus without complications; Z95.0 Presence of cardiac pacemaker; Z79.899 Other long term (current) drug therapy; Z88.0 Allergy status to penicillin; Z88.2 Allergy status to sulfonamides; Z91.030 Bee allergy status; Z88.8 Allergy status to other drugs, medicaments and biological substances; Z79.82 Long term (current) use of aspirin; Z79.01 Long term (current) use of anticoagulants | CPT/HCPCS: 30901; 99281; 99283 ==

== ENCOUNTER 2024-10-24 11:01 | Emergency (ER) | payer MEDICARE ==
[2024-10-24 11:12] VITALS: PULSE 62
[2024-10-24 12:02] VITALS: BP 107/60
== END 2024-10-24 11:55 | disposition home or self-care (01) ==
LOC: LB.ED 11:01
DX: R04.0 Epistaxis (principal); K21.9 Gastro-esophageal reflux disease without esophagitis; E11.9 Type 2 diabetes mellitus without complications; Z88.0 Allergy status to penicillin; Z88.2 Allergy status to sulfonamides; Z88.8 Allergy status to other drugs, medicaments and biological substances; Z91.030 Bee allergy status; Z79.890 Hormone replacement therapy; Z79.899 Other long term (current) drug therapy; Z90.49 Acquired absence of other specified parts of digestive tract
CPT/HCPCS: 99283

== ENCOUNTER 2025-05-12 13:52 | Emergency (ER) | payer MEDICARE ==
[2025-05-12] MEDS ORDERED: Sodium Chloride 0.9% 10 ML Syringe FLUSH PRN (15:18)
[2025-05-12] MEDS: Sodium Chloride 0.9% 1,000 ML IV ONE (15:20)
[2025-05-12 15:57] LABS: BUN/CREATININE RATIO 21.6 (6-25); CALCIUM 8.2 mg/dL (8.5-10.1); CARBON DIOXIDE,CO2 30.5 mmol/L (21.0-32.0); CREATININE 2.32 mg/dL (0.70-1.30); EST CRCL DRUG DOSING (CG) 20.97 mL/min; TROPONIN I HIGH SENSITIVITY 45.4 pg/ml (<=60.4)
[2025-05-12 16:00] LABS: BASOPHILS ABSOLUTE AUTO 0.03 K/uL (0.02-0.10); BASOPHILS PERCENT AUTO 0.8 % (0.0-0.5); EOSINOPHILS PERCENT AUTO 2.6 % (1.0-5.0); HEMATOCRIT 22.2 % (40.0-54.0); HEMOGLOBIN 7.3 g/dL (13.0-18.0); LYMPHOCYTES ABSOLUTE AUTO 0.45 K/uL (1.50-4.00); LYMPHOCYTES PERCENT AUTO 11.5 % (20.0-40.0); MEAN CORPUSCULAR HEMOGLOBIN 29.9 pg (27.0-32.0); MEAN CORPUSCULAR HGB CONC 32.9 g/dL (31.0-35.0); MEAN CORPUSCULAR VOLUME 91 fL (76-96); MEAN PLATELET VOLUME 10.7 fL (6.0-10.0); MONOCYTES ABSOLUTE AUTO 0.65 K/uL (0.20-0.80); MONOCYTES PERCENT AUTO 16.6 % (3.0-10.0); NEUTROPHILS ABSOLUTE AUTO 2.69 K/uL (2.00-7.50); NEUTROPHILS PERCENT AUTO 68.5 % (45.0-70.0); PLATELET COUNT,PLT 138 K/uL (150-400); RED BLOOD CELL COUNT 2.44 M/uL (4.50-6.50); RED CELL DISTRIBUTION WIDTH 22.8 % (11.0-16.0); WHITE BLOOD CELL COUNT,WBC 3.9 K/uL (4.0-11.0)
[2025-05-12 16:06] LABS: ANION GAP 11.4 mmol/L (5.0-15.0); POTASSIUM,K 3.9 mmol/L (3.5-5.1)
[2025-05-12] MEDS: Sodium Chloride 0.9% 1,000 ML IV SCH (17:00)
[2025-05-12 19:31] LABS: INR 1.5 (1.0-3.5); PTT,PARTIAL THROMBOPLSTIN TIME 32.3 SECONDS (24.4-33.2)
[2025-05-12 19:33] LABS: PROTHROMBIN TIME 15.2 sec (9.0-11.5)
[2025-05-12 19:56] VITALS: BP 113/55
[2025-05-12 20:18] LABS: APPEARANCE,URINE CLEAR (CLEAR); BILIRUBIN,URINE NEGATIVE (NEGATIVE); COLOR,URINE YELLOW; GLUCOSE,URINE NEGATIVE (NEGATIVE); KETONES,URINE NEGATIVE (NEGATIVE); LEUKOCYTE ESTERASE,URINE SMALL (NEGATIVE); NITRITE,URINE NEGATIVE (NEGATIVE); OCCULT BLOOD,URINE TRACE-INTACT (NEGATIVE); PH,URINE 5.5 (5.0-8.0); PROTEIN,URINE NEGATIVE (NEGATIVE); UROBILINOGEN,URINE 0.2 E.U./dL (0.2-1.0)
[2025-05-12 20:33] LABS: EPITHELIAL CELLS,URINE FEW /HPF; HYALINE CASTS,URINE RARE /HPF; MUCUS,URINE FEW /HPF
[2025-05-12 21:51] VITALS: PULSE 64
== END 2025-05-12 20:19 ==
LOC: LB.ED 13:52
DX: S51.011A Laceration without foreign body of right elbow, initial encounter (principal); S70.01XA Contusion of right hip, initial encounter; I95.9 Hypotension, unspecified; I11.0 Hypertensive heart disease with heart failure; I50.9 Heart failure, unspecified; E11.9 Type 2 diabetes mellitus without complications; D64.9 Anemia, unspecified; J90 Pleural effusion, not elsewhere classified; Z79.01 Long term (current) use of anticoagulants; Z79.899 Other long term (current) drug therapy; Z88.0 Allergy status to penicillin; Z88.2 Allergy status to sulfonamides; Z91.030 Bee allergy status; Z90.49 Acquired absence of other specified parts of digestive tract; W10.9XXA Fall (on) (from) unspecified stairs and steps, initial encounter
CPT/HCPCS: 36415; 36430; 71250; 74176; 80048; 81001; 84484; 85025; 85610; 85730; 86140; 86850; 86900; 86901; 86920; 86922; 87086; 93005; 96360; 96361; 99285; J7030; J7040; P9016; 93010; A0425; A0428

== ENCOUNTER 2025-08-26 08:57 | Emergency (ER) | payer MEDICARE ==
[2025-08-26] MEDS ORDERED: Sodium Chloride 0.9% 10 ML Syringe FLUSH PRN ×2 (09:31→15:10)
[2025-08-26 09:47] LABS: MEAN PLATELET VOLUME 11.0 fL (6.0-10.0); PLATELET COUNT,PLT 94.0 K/uL (150-400); RED BLOOD CELL COUNT 3.9 M/uL (4.50-6.50); RED CELL DISTRIBUTION WIDTH 18.9 % (11.0-16.0); WHITE BLOOD CELL COUNT,WBC 2.6 K/uL (4.0-11.0)
[2025-08-26 10:08] LABS: APPEARANCE,URINE SLIGHTLY CLOUDY (CLEAR); GLUCOSE,URINE NEGATIVE (NEGATIVE)
[2025-08-26 10:10] LABS: OCCULT BLOOD,URINE NEGATIVE (NEGATIVE)
[2025-08-26 10:19] LABS: CARBON DIOXIDE,CO2 26.1 mmol/L (21.0-32.0); CHLORIDE,CL 94.0 mmol/L (98-107); EST CRCL DRUG DOSING (CG) 10.21 mL/min; ESTIMATED GFR 11.0 mL/min (>60); GLUCOSE RANDOM 111.0 mg/dL (74-100); POTASSIUM,K 5.4 mmol/L (3.5-5.1); SODIUM,NA 131.0 mmol/L (136-145); TROPONIN I HIGH SENSITIVITY 41.7 pg/ml (<=60.4)
[2025-08-26 10:21] LABS: PRO B-TYPE NATRIUR PEPT,BNPPRO 51351.0 pg/mL (0-450)
[2025-08-26 10:25] LABS: BLOOD UREA NITROGEN,BUN 97.0 mg/dL (8-26); CREATININE 4.93 mg/dL (0.70-1.30)
[2025-08-26 11:01] LABS: INR 9.9 (1.0-3.5)
[2025-08-26] MEDS: Furosemide 20 MG/2 ML VIAL IVPUSH ONE (11:07)
[2025-08-26] MEDS: Norepinephrine Bit/0.9% NaCl 4 MG/250 ML BAG IV SCH (11:58)
[2025-08-26 14:34] LABS: INR 5.9 (1.0-3.5)
[2025-08-26 14:53] LABS: CARBON DIOXIDE,CO2 24.5 mmol/L (21.0-32.0); CHLORIDE,CL 95.0 mmol/L (98-107); EST CRCL DRUG DOSING (CG) 10.64 mL/min; ESTIMATED GFR 11.0 mL/min (>60); GLUCOSE RANDOM 94.0 mg/dL (74-100); POTASSIUM,K 5.7 mmol/L (3.5-5.1); SODIUM,NA 129.0 mmol/L (136-145)
[2025-08-26 14:59] LABS: BLOOD UREA NITROGEN,BUN 99.0 mg/dL (8-26); CREATININE 4.73 mg/dL (0.70-1.30)
[2025-08-26] MEDS ORDERED: 50% Dextrose in Water 50 ML Syringe IVPUSH PRN (15:10)
[2025-08-26] MEDS: Calcium Gluconate 10% 1 GM/10 ML SDV IVPUSH ONE (15:16)
[2025-08-26] MEDS: 50% Dextrose in Water 50 ML Syringe IVPUSH ONE (15:24)
[2025-08-26] MEDS: Insulin Regular, Human 100 Units/ML 10 ML Vial IVPUSH ONE (15:31)
[2025-08-26 17:06] VITALS: BP 96/57; PULSE 67
== END 2025-08-26 17:29 ==
LOC: LB.ED 08:57
DX: I21.A1 Myocardial infarction type 2 (principal); I50.9 Heart failure, unspecified; I11.0 Hypertensive heart disease with heart failure; N17.9 Acute kidney failure, unspecified; E87.5 Hyperkalemia; R79.1 Abnormal coagulation profile; R79.89 Other specified abnormal findings of blood chemistry; E11.9 Type 2 diabetes mellitus without complications; Z90.49 Acquired absence of other specified parts of digestive tract; Z88.0 Allergy status to penicillin; Z88.2 Allergy status to sulfonamides; Z91.030 Bee allergy status; Z79.01 Long term (current) use of anticoagulants; Z79.899 Other long term (current) drug therapy
CPT/HCPCS: 36415; 51702; 71045; 80048; 81003; 82947; 83605; 83735; 83880; 84484; 85027; 85610; 87040; 93005; 93010; 96365; 96366; 96367; 96368; 96375; 99285; 99285-25; A9270-GY; C1758; J0612; J1938; J1939; J3430